=== PATIENT | male | born 1950 | race Two or more races ===

== ENCOUNTER 2025-04-16 11:05 | Day surgery (SDC) | payer MEDICARE, OTHER, SELFPAY ==
[2025-04-16 10:55] VITALS: BMI 30.6
[2025-04-16 11:05] VITALS: BP 103/75
[2025-04-16 11:13] VITALS: BMI 30.6
[2025-04-16 11:29] LABS: Glucose - Point of Care 105 mg/dl (70-99)
[2025-04-16 14:11] VITALS: BP 116/65
[2025-04-16 14:15] VITALS: BP 137/74
[2025-04-16 14:30] VITALS: BP 143/89
== END 2025-04-16 15:00 | disposition home or self-care (01) ==
LOC: SDS 11:05
PROVIDERS: ATTENDING PHYSICIAN Internal Medicine Gastroenterology
DX: C18.1 Malignant neoplasm of appendix (principal); D12.3 Benign neoplasm of transverse colon; K64.0 First degree hemorrhoids
CPT/HCPCS: 45390; 45385; 82962; 86850; 86900; 86901; 88305; 88342

== ENCOUNTER → 2025-05-15 08:31 | Outpatient (REF) | payer MEDICARE, OTHER, SELFPAY | LOC: RAD 08:31 | PROVIDERS: ATTENDING PHYSICIAN Surgery; FAMILY PHYSICIAN Student in an Organized Health Care Education/Training Program | DX: C18.2 Malignant neoplasm of ascending colon (principal) | CPT/HCPCS: 71260; 74177; Q9967 ==